=== PATIENT | female | born 1990 | race Caucasian/White ===

== ENCOUNTER 2017-05-18 20:04 | Emergency (ER) | payer OTHER ==
[~2017-05-18] VITALS: Ht 160 cm; Wt 98.0 kg
[2017-05-18 20:13] VITALS: BP 143/103
[2017-05-18] MEDS ORDERED: HYDROCODONE/APAP 5/325MG 1 EACH TABLET ONE (20:42)
[2017-05-18] MEDS ORDERED: HYDROCODONE/APAP 5/325MG 1 EACH TABLET PO ONE (21:00)
== END 2017-05-18 20:47 | disposition home or self-care (01) ==
LOC: ER 20:06
DX: S93.401A Sprain of unspecified ligament of right ankle, initial encounter (principal); Z88.8 Allergy status to other drugs, medicaments and biological substances; X58.XXXA Exposure to other specified factors, initial encounter; Y93.89 Activity, other specified; Y92.89 Other specified places as the place of occurrence of the external cause; Y99.9 Unspecified external cause status
CPT/HCPCS: A4606; Z7610

== ENCOUNTER 2017-07-05 13:05 | Emergency (ER) | payer OTHER ==
[~2017-07-05] VITALS: Ht 160 cm; Wt 98.0 kg
[2017-07-05 13:05] VITALS: BP 134/97
[2017-07-05] MEDS ORDERED: IBUPROFEN 600 MG TABLET PO ONE ×2 (13:49→14:00)
[2017-07-05] MEDS ORDERED: PSEUDOEPHEDRINE HCL 30 MG TABLET ONE (13:50)
[2017-07-05] MEDS ORDERED: PSEUDOEPHEDRINE HCL 30 MG TABLET PO ONE (14:00)
== END 2017-07-05 13:55 | disposition home or self-care (01) ==
LOC: ER 13:06
DX: H92.03 Otalgia, bilateral (principal); B34.9 Viral infection, unspecified; Z88.8 Allergy status to other drugs, medicaments and biological substances
CPT/HCPCS: A4606; Z7610